=== PATIENT | female | born 2005 | race Caucasian/White ===

== ENCOUNTER 2023-07-18 00:04 | Emergency (ER) | payer BC ==
[2023-07-18] MEDS ORDERED: Aluminum Hydroxide/Magnesium Hydroxide/Simethicone Susp 30 ML Cup PO ONE (00:44)
[2023-07-18 00:52] LABS: BASOPHILS ABSOLUTE AUTO 0.1 K/mm3 (0.0-0.2); EOSINOPHILS ABSOLUTE AUTO 0.2 K/mm3 (0.0-0.4); EOSINOPHILS PERCENT AUTO 2.4 % (0.0-6.0); HEMATOCRIT 41.7 % (37.0-47.0); HEMOGLOBIN 13.9 gm/dl (12.0-16.0); IMMATURE GRAN ABSOLUTE AUTO 0.01 K/mm3 (0.00-0.05); IMMATURE GRAN PERCENT AUTO 0.1 % (0.0-0.4); LYMPHOCYTES ABSOLUTE AUTO 3.6 K/mm3 (1.0-4.8); LYMPHOCYTES PERCENT AUTO 52.2 % (24.0-44.0); MEAN CORPUSCULAR HEMOGLOBIN 29.2 pg (28.0-32.0); MEAN CORPUSCULAR HGB CONC 33.3 g/dl (32.0-36.0); MEAN CORPUSCULAR VOLUME 87.6 fl (83.0-99.0); MEAN PLATELET VOLUME 8.3 fl (9.4-12.3); MONOCYTES ABSOLUTE AUTO 0.7 K/mm3 (0.0-0.8); NEUTROPHILS ABSOLUTE AUTO 2.4 K/mm3 (1.8-7.7); NEUTROPHILS PERCENT AUTO 34.3 % (41.0-71.0); PLATELET COUNT,PLT 343 K/mm3 (150-400); RED BLOOD CELL COUNT 4.76 M/mm3 (4.10-5.30); WHITE BLOOD CELL COUNT,WBC 6.97 K/mm3 (3.9-11.3)
[2023-07-18 01:06] LABS: A/G RATIO 1.1 (1-2); ALANINE AMINOTRANSFERASE,ALT 24 U/L (14-59); ALBUMIN 4.3 g/dl (3.4-5.0); ALKALINE PHOSPHATASE 70 U/L (46-116); ANION GAP 13.4 (5-15); ASPARTATE AMNIOTRANSFERASE,AST 21 U/L (15-37); BILIRUBIN TOTAL 0.3 mg/dL (0.2-1.0); BLOOD UREA NITROGEN,BUN 8 mg/dL (7-18); BUN/CREATININE RATIO 8.9 (14-18); C-REACTIVE PROTEIN <0.2 mg/dL (<1.0); CARBON DIOXIDE,CO2 27 mEq/L (21-32); CHLORIDE,CL 102 mEq/L (98-107); CREATININE 0.9 mg/dL (0.55-1.02); EST CRCL DRUG DOSING (CG) 93.34 mL/min; ESTIMATED GFR 94 mL/min (>60); GLUCOSE RANDOM 99 mg/dL (70-99); POTASSIUM,K 3.4 mEq/L (3.5-5.1); PROTEIN TOTAL,TP 8.1 g/dl (6.4-8.2); SODIUM,NA 139 mEq/L (136-145)
[2023-07-18 01:10] LABS: TROPONIN I HIGH SENSITIVITY < 4 pg/mL (<=51)
[2023-07-18] MEDS ORDERED: Famotidine 20 MG/2 ML SDV IVPUSH STA (02:12)
== END 2023-07-18 02:30 | disposition home or self-care (01) ==
LOC: JD.ED 00:04
DX: K21.9 Gastro-esophageal reflux disease without esophagitis (principal)
CPT/HCPCS: 36415; 71046; 80053; 84484; 85025; 85379; 86140; 93005; 96374; 99285; A9270; J3490; 93010; 99284